=== PATIENT | female | born 1970 | race Caucasian/White ===

== ENCOUNTER 2020-05-04 00:54 | Emergency (ER) | payer MEDICAID ==
[~2020-05-04] VITALS: Ht 160 cm; Wt 56.7 kg
[2020-05-04 01:43] VITALS: BP_SYST 151
--- NOTE | 2020-05-04 01:43 | NUR ---
Patient to ER bed 5 to gown for evaluation. Side rails up.
--- NOTE | 2020-05-04 01:44 | NUR ---
PT A&OX4 C/O OF LEFT LOWER BURNING BACK PAIN THAT RADIATES DOWN LEFT AND INTO LEFT SIDE OF GROIN THAT STARTED SUNDAY EVENING. PT STATES HER LOWER ABDOMEN FEELS SWOLLEN. PT RATES PAIN 07/31. PT TOOK TYLENOL YESTERDAY WITH NO RELIEF. PT DENIES TAKING PAIN MEDICATION TODAY. PT DENIES COUGH, SOB, FEVER.
--- NOTE | 2020-05-04 02:04 | NUR ---
ER at bedside examining patient.
[2020-05-04] MEDS ORDERED: KETOROLAC TROMETHAMINE 60 MG/2 ML VIAL IM ONE (02:15)
--- NOTE | 2020-05-04 02:22 | NUR ---
PT ATTEMPTING TO GIVE URINE SAMPLE
--- NOTE | 2020-05-04 02:37 | NUR ---
Patient transported to radiology via wheelchair, accompanied by
--- NOTE | 2020-05-04 03:00 | NUR ---
LAB AT BEDSIDE.
[2020-05-04 03:05] LABS: BILIRUBIN,URINE NEGATIVE (NEGATIVE); BLOOD, URINE 3+ (NEGATIVE); CLARITY/URINE CLEAR (CLEAR); COLOR,URINE YELLOW (YELLOW); GLUCOSE,URINE NEGATIVE (NEGATIVE); KETONES,URINE NEGATIVE (NEGATIVE); LEUKOCYTE ESTERASE ,URINE NEGATIVE (NEGATIVE); NITRITE, URINE NEGATIVE (NEGATIVE); PH,URINE 6.5 (5.0-8.0); PROTEIN URINE NEGATIVE (NEGATIVE); UROBILINOGEN,URINE 0.2 (0.2-1.0)
[2020-05-04 03:29] LABS: BASOPHILS # (AUTO) 0.1 K/uL (0.0-0.2); EOSINOPHILS # (AUTO) 0.3 K/uL (0.0-0.4); EOSINOPHILS % (AUTO) 5.6 % (0.0-4.0); HEMATOCRIT 39.6 % (36-48); HEMOGLOBIN 13.4 g/dL (12.0-16.0); LYMPHOCYTES % (AUTO) 39.3 % (20.5-51.5); MEAN CORPUSCULAR HEMOGLOBIN 31 pg (27-31); MEAN CORPUSCULAR HGB CONC 34 % (32-36); MEAN CORPUSCULAR VOLUME 93 fL (79.0-98.0); MONOCYTES # (AUTO) 0.5 K/uL (0.0-1.0); MONOCYTES % (AUTO) 9.6 % (1.7-9.3); NEUTROPHILS # (AUTO) 2.3 K/uL (1.8-7.7); NEUTROPHILS % (AUTO) 44.5 % (40.0-70.0); PLATELET COUNT (AUTO) 273 K/uL (130-430); RED BLOOD CELL COUNT(AUTO) 4.26 MIL/uL (4.2-6.2); RED CELL DISTRIBUTION WIDTH 13.3 % (9.0-15.0); WHITE BLOOD COUNT (AUTO) 5.2 K/uL (4.8-10.8)
[2020-05-04 03:36] LABS: BACTERIA,URINE FEW /HPF (None Seen); RBC,URINE 20-50 /HPF (0-3); WBC,URINE 0-3 /HPF (0-3)
[2020-05-04 03:40] LABS: ALBUMIN 3.9 g/dL (3.4-4.8); CALCIUM 9.3 mg/dL (8.4-11.0); CREATININE 0.68 mg/dL (0.55-1.30); POTASSIUM 3.4 mmol/L (3.5-5.1); TOTAL BILIRUBIN 0.3 mg/dL (0.0-1.0)
[2020-05-04 03:53] LABS: AMYLASE 60 U/L (0-100); LIPASE 99 U/L (73-393)
[2020-05-04 04:15] VITALS: BP_SYST 133
[2020-05-04] MEDS ORDERED: MILK OF MAGNESIA 30 ML UDC PO ONE (04:15)
--- NOTE | 2020-05-04 04:15 | NUR ---
Patient given written and verbal discharge instructions and verbalizes understanding. ER MD discussed with patient the results and treatment provided. Patient in stable condition. ID arm band removed. Rx of IBUPROFEN given. Patient educated on pain management and to follow up with PMD. Pain Scale 2/10. Opportunity for questions provided and answered. Medication side effect fact sheet provided.
== END 2020-05-04 04:15 | disposition home or self-care (01) ==
LOC: SED 00:54
DX: K59.00 Constipation, unspecified (principal); M54.5 Low back pain; R10.2 Pelvic and perineal pain; E78.00 Pure hypercholesterolemia, unspecified; Z86.718 Personal history of other venous thrombosis and embolism
CPT/HCPCS: 36415; 72131; 74176; 80053; 81000; 81025; 82150; 83690; 85025; 96372; 99285; J1885